=== PATIENT | female | born 1945 | race Caucasian/White ===

== ENCOUNTER 2019-04-15 09:10 | Day surgery (SDC) | payer OTHER, SELFPAY ==
--- NOTE | 2019-04-14 19:18 | PM.PREOP ---
Pre-operative Note Interval Note History & Physical reviewed/Exam performed by Physician: Yes Changes to H&P: No
--- NOTE | 2019-04-15 08:23 | P.OP_ITS ---
Operative Date/Time/Diagnoses Date of procedure: 04/15/19 Time of procedure: 10:45 Procedure & Clinicians Procedure: Preoperative diagnoses: 1. Left cataract surgery with use of capsular dye. 2. Advanced cortical cataract with poor visibility of the anterior capsule increasing surgical risks of complications. Postoperative diagnoses: 1. Left phacoemulsificiation surgery with use of capsular dye, 2. Placement of a posterior chamber intraocular lens implant. Surgeon: Kelle Palomares MD Complications: none Specimen: None Implant: [id number]+22.0 Blood loss: None Anesthesia: Retrobulbar with monitored standby. Description of procedure: Dictated by: Kelle Palomares MD Copy to: [facility] Post operative diagnoses: 1. Left cataract removed with use of capsular dye with placement of a posterior chamber intraocular lens. Procedure: Phacoemulsification with posterior chamber intraocular lens implant Surgeon: Kelle Palomares MD Blood loss: None Anesthesia: Retrobulbar with monitored standby Description of procedure: Patient has presented with decreased vision due to cataract which is affecting activities of daily living. She has glare and halos The patient wants surgery to improve vision. She has diffuse cortical spoking through the visual axis and capsular dye is needed to increase safety The patient was taken to the operating room and given IV sedation. A retrobulbar block consisting of 6 cc of 2% xylocaine without epinephrine mixed half and half with 0.5% Marcaine with 1 cc of hyaluronidase added is placed between the medial and lateral 1/3 of the inferior orbital rim. Lid akinesia is obtain with 1% xylocaine with epinephrine infiltrated along the lid margin. The eye is manually massaged for 30 sec, prepped using Betadine solution, and draped in the usual sterile fashion. Temporal approach was made, a 1 mm side-port incision was performed 90 degrees from the planned corneal wound. Phenylephrine 1.5% mixed with 1% xylocaine 0.2 cc was placed into the anterior chamber. An air bubble was placed and Visudyne dye was placed to improve visibility of the anterior capsule. The dye was irrigated out to reduce bubbles. Viscoat followed by Healon was then placed. A 2.6 mm clear incision with a 2.6 mm blade was placed. A 360 degree capsulorrhexis style capsulotomy was then performed with a cystitome needle on a Healon. Hydrodelineation and hydrodissection were performed. The phacoemulsif ication unit is introduced, and sculpting used to groove the central lens. It is then removed in chopping mode. Epi nucleus is removed with epinuclear mode and irrigation aspiration was used to remove the peripheral cortex. The posterior capsule is polished. The intraocular lens is selected, inspected, power confirmed, and placed in the posterior chamber. The pupil was constricted with Miostat. The wound was stromally hydrated and tested for leaks, there was none and was left sutureless. Vigamox 0.1 cc was placed into the anterior chamber. Kenalog 0.2 cc was placed in the superior subconjunctival space. A drop of antibiotic and was placed and the eye was patched and shielded. The patient was stable and returned to the recovery room in excellent condition. Dictated by: Kelle Palomares MD Copy to: [facility] Same procedure as scheduled: Yes
[2019-04-15 09:42] VITALS: BP 177/76; PULSE 58; RESP 16; TEMP 36.6; O2SAT 97; BMI 25.9
[2019-04-15] MEDS: PROPARACAINE 0.5% OPHTH SOL 2 DROPS EYE-OP (09:48)
[2019-04-15] MEDS: CATARACT EYE COMPOUND (10 DROPS/SYRINGE) 3 DROPS EYE-OP (09:55)
--- NOTE | 2019-04-15 10:23 | SUR.OPER ---
Supine on eye stretcher, head on extension cradle secured with tape. Arms tucked at sides with blanket. Pillow under knees.
[2019-04-15] MEDS: TRYPAN BLUE 0.5 ML SYRINGE INJ (11:11)
[2019-04-15] MEDS: CHONDROIDTIN/SOD HYALURONATE 1.05 ML SYRINGE INTRAOCULA (11:11)
[2019-04-15] MEDS: HYALURONATE SODIUM 10 MG/ML SYRINGE INJ (11:11)
[2019-04-15] MEDS: ERYTHROMYCIN OPHTH 1 GM OINT 1 APPLIC EYE-LEFT (11:12)
[2019-04-15] MEDS: PHENYLEPHRINE/LIDOCAINE VIAL (OR) 0.2 ML EYE-OP (11:12)
[2019-04-15] MEDS: TRIAMCINOLONE 50 MG/5 ML VIAL INJ (11:13)
[2019-04-15] MEDS: BALANCED SALT IRRIG SOLN NO.2 500 ML, EPINEPHrine 1 MG IRR (11:13)
[2019-04-15] MEDS: LIDOCAINE 2% 4 ML, BUPIVACAINE 0.5% (PF) 4 ML, HYALURONIDASE 150 UNIT INJ (11:14)
[2019-04-15 11:52] VITALS: BP 152/71; PULSE 47; RESP 16; TEMP 36.3; O2SAT 95
== END 2019-04-15 12:25 | disposition home or self-care (01) ==
LOC: OR 09:12
PROVIDERS: PCP Physician Assistant Medical; Referring Provider Physician Assistant Medical; Visit Provider Ophthalmology
PROC: (CPT 66984; principal; 2019-04-15 10:45)
DX: H25.12 Age-related nuclear cataract, left eye (principal); D31.32 Benign neoplasm of left choroid
CPT/HCPCS: 66984; J0171; J2704; J3301; J3470

== ENCOUNTER 2019-04-29 10:01 | Day surgery (SDC) | payer OTHER, SELFPAY ==
--- NOTE | 2019-04-25 13:07 | PM.PREOP ---
Pre-operative Note Interval Note History & Physical reviewed/Exam performed by Physician: Yes Changes to H&P: No
--- NOTE | 2019-04-25 13:08 | PM.OP.1 ---
Operative Date/Time/Diagnoses Date of procedure: 04/29/19 Time of procedure: 11:45 Procedure & Clinicians Procedure: Preoperative diagnoses: 1. Right complex surgery with use of capsular dye. 2. Advanced cortical cataract and moderate nuclear sclerotic changes with poor visibility of the anterior capsule increasing surgical risks of complications. 3. Hypothyroidism. Postoperative diagnoses: 1. Complex surgery with use of capsular dye, 2. Placement of a posterior chamber intraocular lens implant. Surgeon: Kelle Palomares MD Complications: none Specimen: None Implant: [id number]+22.0 Blood loss: None Anesthesia: Retrobulbar with monitored standby. Description of procedure: Dictated by: Kelle Palomares MD Post operative diagnoses: 1. Right cataract removed with use of capsular dye . 2. Placement of a posterior chamber intraocular lens. Procedure: Phacoemulsification with posterior chamber intraocular lens implant Surgeon: Kelle Palomares MD Blood loss: None Anesthesia: Retrobulbar with monitored standby Description of procedure: Patient has presented with decreased vision due to cataract which is affecting activities of daily living. The patient wants surgery to improve vision. The patient was taken to the operating room and given IV sedation. A retrobulbar block consisting of 6 cc of 2% xylocaine without epinephrine mixed half and half with 0.5% Marcaine with 1 cc of hyaluronidase added is placed between the medial and lateral 1/3 of the inferior orbital rim. he eye is manually massaged for 30 sec, prepped using Betadine solution, and draped in the usual sterile fashion. Temporal approach was made, a 1 mm side-port incision was performed 90 degrees from the planned corneal wound. Phenylephrine 1.5% mixed with 1% xylocaine 0.2 cc was placed into the anterior chamber. An air bubble was placed and Visudyne dye was placed to improve visibility of the anterior capsule. The dye was irrigated out to reduce bubbles. Viscoat followed by Franci was then placed. A 2.6 mm clear incision with a 2.6 mm blade was placed. A 360 degree capsulorrhexis style capsulotomy was then performed with a cystitome needle on a Resonateon. Hydrodelineation and hydrodissection were performed. The phacoemulsification unit is introduced, and sculpting used to groove the central lens. It is then removed in chopping mode. Epi nucleus is removed with epinuclear mode and irrigation aspiration was used to remove the peripheral cortex. The posterior capsule is polished. The intraocular lens is selected, inspected, power confirmed, and placed in the posterior chamber. The pupil was constricted with Miostat. The wound was stromally hydrated and tested for leaks, there was none and was left sutureless. Vigamox 0.1 cc was placed into the anterior chamber. Kenalog 0.2 cc was placed in the superior subconjunctival space. A drop of antibiotic and was placed and the eye was patched and shielded. The patient was stable and returned to the recovery room in excellent condition. Dictated by: Kelle Palomares MD Copy to: [facility] Same procedure as scheduled: Yes
[2019-04-29] MEDS: PROPARACAINE 0.5% OPHTH SOL 2 DROPS EYE-OP (11:13)
[2019-04-29] MEDS: CATARACT EYE COMPOUND (10 DROPS/SYRINGE) 3 DROPS EYE-OP (11:15)
[2019-04-29 11:20] VITALS: BP 149/67; PULSE 44; RESP 16; TEMP 36.1; O2SAT 99; BMI 25.5
--- NOTE | 2019-04-29 12:21 | SUR.OPER ---
Supine on eye stretcher, head on extension cradle secured with tape. Arms tucked at sides with blanket. Pillow under knees.
[2019-04-29] MEDS: HYALURONATE SODIUM 10 MG/ML SYRINGE INJ (12:27)
[2019-04-29] MEDS: CHONDROIDTIN/SOD HYALURONATE 1.05 ML SYRINGE INTRAOCULA (12:27)
[2019-04-29] MEDS: TRYPAN BLUE 0.5 ML SYRINGE INJ (12:27)
[2019-04-29] MEDS: ERYTHROMYCIN OPHTH 1 GM OINT 1 APPLIC EYE-RIGHT (12:27)
[2019-04-29] MEDS: TRIAMCINOLONE 50 MG/5 ML VIAL INJ (12:28)
[2019-04-29] MEDS: PHENYLEPHRINE/LIDOCAINE VIAL (OR) 0.2 ML EYE-OP (12:28)
[2019-04-29] MEDS: MOXIFLOXACIN INJ 5 MG/ML VIAL EYE-OP (12:29)
[2019-04-29] MEDS: LIDOCAINE 2% 4 ML, BUPIVACAINE 0.5% (PF) 4 ML, HYALURONIDASE 150 UNIT INJ (12:29)
[2019-04-29] MEDS: BALANCED SALT IRRIG SOLN NO.2 500 ML, EPINEPHrine 1 MG IRR (12:31)
[2019-04-29 13:16] VITALS: BP 140/66; PULSE 41; RESP 12; TEMP 36.4; O2SAT 99
== END 2019-04-29 13:21 | disposition home or self-care (01) ==
LOC: OR 10:05
PROVIDERS: PCP Physician Assistant Medical; Referring Provider Ophthalmology; Visit Provider Ophthalmology
PROC: (CPT 66982; principal; 2019-04-29 11:45)
DX: H25.811 Combined forms of age-related cataract, right eye (principal); E03.9 Hypothyroidism, unspecified
CPT/HCPCS: 66982; J0171; J2704; J3301; J3470